=== PATIENT | male | born 1975 | race Caucasian/White ===

== ENCOUNTER 2018-05-03 09:17 | Day surgery (SDC) | payer OTHER ==
[2018-05-03] MEDS ORDERED: DEXAMETHASONE 2 MG TAB PO (10:30)
[2018-05-03] MEDS ORDERED: CEFAZOLIN 2 GM/50 ML (PMX) 50 ML IVPB (10:30)
[2018-05-03] MEDS ORDERED: GABAPENTIN 300 MG CAP PO (10:30)
[2018-05-03] MEDS ORDERED: CEFAZOLIN 1 GM INJ (10:45)
[2018-05-03] MEDS ORDERED: ROCURONIUM 50 MG INJ (10:45)
[2018-05-03] MEDS ORDERED: PROPOFOL 20 ML (10:45)
[2018-05-03] MEDS ORDERED: MIDAZOLAM 1 MG/ML 2 ML INJ (10:45)
[2018-05-03] MEDS ORDERED: GLYCOPYRROLATE 0.4 MG INJ ×2 (10:45→14:57)
[2018-05-03] MEDS ORDERED: NEOSTIGMINE 3 MG/3 ML SYRINGE (10:45)
[2018-05-03] MEDS ORDERED: ONDANSETRON 4 MG INJ ×2 (10:46→13:59)
[2018-05-03] MEDS ORDERED: FENTAnyl 50 MCG/ML VIAL (10:46)
[2018-05-03] MEDS ORDERED: DEXAMETHASONE 4 MG/ML 5 ML INJ (10:46)
[2018-05-03] MEDS ORDERED: ROPIVACAINE 0.5 % 30 ML VIAL (10:49)
[2018-05-03] MEDS: TRANEXAMIC ACID 1,000 MG in DEXTROSE 5% 100 ML IVPB ×2 (13:32)
[2018-05-03] MEDS: ONDANSETRON 4 MG INJ IV (14:20)
== END 2018-05-03 15:30 | disposition home or self-care (01) ==
LOC: SDS 09:17
DX: M75.41 Impingement syndrome of right shoulder (principal); M19.011 Primary osteoarthritis, right shoulder; S43.491D Other sprain of right shoulder joint, subsequent encounter; S46.211D Strain of muscle, fascia and tendon of other parts of biceps, right arm, subsequent encounter; M65.811 Other synovitis and tenosynovitis, right shoulder; X58.XXXD Exposure to other specified factors, subsequent encounter; E66.9 Obesity, unspecified; Z68.34 Body mass index [BMI] 34.0-34.9, adult
CPT/HCPCS: 29823